=== PATIENT | female | born 1985 | race Caucasian/White ===

== ENCOUNTER 2016-09-30 14:42 | Emergency (ER) | payer BC, OTHER ==
[2016-09-30 14:48] VITALS: TEMP 98.2
--- NOTE | 2016-09-30 15:31 | ED ---
General Adult HPI - General Chief complaint: Arrhythmia/Palpitations Stated complaint: Dizzy/Palpations Time Seen by Provider: 09/30/16 14:55 Source: patient, RN notes reviewed, old records reviewed Mode of arrival: wheelchair Limitations: no limitations - History of Present Illness Initial comments: 31-year-old female presenting for dizziness and palpitations. Patient states that she is 26 weeks . She does follow with Dr. Newton, COUNSELING DIRECTOR. She states that she was sitting at work today and she felt gradual onset of some dizziness that continued to worsen as well as associated palpitations. She states this lasted for about an hour before she left work. She states she came to the ED because she couldn't get in with her regular doctor. She denies any chest pain or shortness of breath associated. She states she is still having some mild symptoms but has improved mostly at this point. She denies any abdominal pain or vaginal bleeding. She denies any complications with her thus far. She is . She denies any prior complications. She does state that she has been having some swelling in her right leg. - Related Data Home Medications Medication Instructions Recorded Confirmed Cetirizine HCl [Zyrtec] 5 mg PO DAILY PRN 09/30/16 09/30/16 Ferrous Sulfate [Feosol] 325 mg PO DAILY 09/30/16 09/30/16 Pnv with Ca,No.72/Iron/FA 1 tab PO DAILY 09/30/16 09/30/16 [ Plus Tablet] Allergies Allergy/AdvReac Type Severity Reaction Status Date / Time No Known Allergies Allergy Verified 09/30/16 15:48 Review of Systems ROS Statement: Those systems with pertinent positive or pertinent negative responses have been documented in the HPI. ROS Other: All systems not noted in ROS Statement are negative. Past Medical History Past Medical History: No Reported History History of Any Multi-Drug Resistant Organisms: None Reported Past Surgical History: Section Past Psychological History: No Psychological Hx Reported Smoking Status: Never smoker Past Alcohol Use History: None Reported Past Drug Use History: None Reported General Exam - General Exam Comments Initial Comments: General: Awake and Alert. No acute distress. Does not appear acutely ill. Eyes: JIM, EOM intact. No nystagmus. No scleral icterus. HENT: Atraumatic, normocephalic. Mucous membranes moist. Trachea midline. Neck: The neck is supple, there is no tenderness or JVD. Cardiovascular: Regular rate and rhythm. No murmur, rub, or gallop is appreciated. Distal pulses intact, 2+ radial DP bilaterally. Bilateral lower extremities with nonpitting edema. Right leg with worsening swelling compared to left. Respiratory: Lungs are clear to auscultation bilaterally. No wheezes, rales, rhonchi. No respiratory distress. Gastrointestinal: Soft, Nontender. No rebound or guarding. Non-distended. No masses or organomegaly noted. No CVA tenderness. Gravid uterus. Musculoskeletal: No tenderness. Normal ROM. No gross deformity. No strength deficits. Neurological: A&Ox3. CN II-XII grossly intact, There are no obvious motor or sensory deficits. Coordination appears grossly intact. Speech is normal. Skin: Skin is warm and dry and no rashes or lesions are noted. Psychiatric: Cooperative, appropriate mood & affect, normal judgment. Limitations: no limitations Course Vital Signs 09/30/16 09/30/16 09/30/16 14:45 15:48 15:54 Temperature 98.2 F Pulse Rate 87 77 Pulse Rate [ 91 Rd Lab Technician ] Respiratory 18 16 Rate Blood Pressure 141/67 116/58 O2 Sat by Pulse 100 100 Oximetry 09/30/16 09/30/16 17:34 18:04 Temperature Pulse Rate 88 84 Pulse Rate [ Rd Lab Technician ] Respiratory 16 14 Rate Blood Pressure 110/55 109/56 O2 Sat by Pulse 100 100 Oximetry EKG Findings - EKG Comments: EKG Findings:: 14:54. Normal sinus rhythm. Rate 79. TN 132. QRS 86. QT/QTC 364/470. Normal axis. No STEMI. Normal EKG. Medical Decision Making - Medical Decision Making 31-year-old female presenting for dizziness and palpitations. Initial vitals are stable, afebrile. Patient without any abdominal tenderness. She is not completely vaginal discharge or bleeding. IV fluids. Lab work was performed. She does have some lower extremity swelling worse on the right. Duplex was ordered to rule out DVT. Lower suspicion of PE at this time. Lab workup with stable CBC with stable anemia per patient. BMP stable. LFTs are within normal limits. Low suspicion for preeclampsia rather severe related issue. Patient was reevaluated and states she is feeling completely improved after IV fluids. Updated on results and imaging. Discussed no evidence of DVT at this time and low suspicion of PE. Discussed staying well-hydrated close follow-up with COUNSELING DIRECTOR. Discussed concerning signs and symptoms for immediate return to the ED. Patient is agreeable with plan and discharge home. heart tones were performed by the L&D nurse and stable. - Lab Data Result diagrams: 09/30/16 16:05 09/30/16 16:05 Lab Results 09/30/16 09/30/16 Range/Units 16:05 16:05 WBC 8.9 (3.8-10.6) k/uL RBC 3.99 (3.80-5.40) m/uL Hgb 10.2 L (11.4-16.0) gm/dL Hct 31.9 L (34.0-46.0) % MCV 80.1 (80.0-100.0) fL MCH 25.6 (25.0-35.0) pg MCHC 31.9 (31.0-37.0) g/dL RDW 15.5 (11.5-15.5) % Plt Count 311 (150-450) k/uL Neutrophils % 75 % Lymphocytes % 19 % Monocytes % 4 % Eosinophils % 1 % Basophils % 0 % Neutrophils # 6.7 (1.3-7.7) k/uL Lymphocytes # 1.7 (1.0-4.8) k/uL Monocytes # 0.4 (0-1.0) k/uL Eosinophils # 0.1 (0-0.7) k/uL Basophils # 0.0 (0-0.2) k/uL Hypochromasia Slight Sodium 139 (137-145) mmol/L Potassium 3.9 (3.5-5.1) mmol/L Chloride 107 (98-107) mmol/L Carbon Dioxide 22 (22-30) mmol/L Anion Gap 10 mmol/L BUN 7 (7-17) mg/dL Creatinine 0.55 (0.52-1.04) mg/dL Est GFR (MDRD) Af Amer >60 (>60 ml/min/1.73 sqM) Est GFR (MDRD) Non-Af >60 (>60 ml/min/1.73 sqM) Glucose 92 (74-99) mg/dL Calcium 9.1 (8.4-10.2) mg/dL Total Bilirubin 0.2 (0.2-1.3) mg/dL AST 17 (14-36) U/L ALT 22 (9-52) U/L Alkaline Phosphatase 108 (38-126) U/L Total Protein 7.2 (6.3-8.2) g/dL Albumin 3.7 (3.5-5.0) g/dL - EKG Data -: EKG Interpreted by In EKG shows normal: sinus rhythm Rate: normal When compared to previous EKG there are: no significant change - Radiology Data Radiology results: report reviewed Disposition Clinical Impression: Dizziness, 26 weeks gestation of , Dehydration, Anemia Disposition: HOME SELF-CARE Condition: Stable Instructions: Dizziness (ED), Palpitations (ED), Dehydration (ED) Additional Instructions: Please continue iron pills. Referrals: Stephanie Macedo MD [Primary Care Provider] - 1-2 days Fabrice Newton MD [STAFF PHYSICIAN] - 1-2 days Time of Disposition: 17:42
[2016-09-30] MEDS: SODIUM CHLORIDE 0.9% 1,000 ML IV ONE (16:04)
[2016-09-30 16:15] LABS: Basophils % (A) 0 %; CH 25.5; CHCM 32.1; Eosinophils # (A) 0.1 k/uL (0-0.7); Eosinophils % (A) 1 %; HCT 31.9 % (34.0-46.0); HDW 2.82; HGB 10.2 gm/dL (11.4-16.0); Hypochromasia Slight; Luc # (Auto) 0.09; Luc % (Auto) 1; Lymphocytes # (A) 1.7 k/uL (1.0-4.8); Lymphocytes % (A) 19 %; MCH 25.6 pg (25.0-35.0); MCHC 31.9 g/dL (31.0-37.0); MCV 80.1 fL (80.0-100.0); Mean Platelet Volume 7.9; Monocytes # (A) 0.4 k/uL (0-1.0); Monocytes % (A) 4 %; Neutrophils # (A) 6.7 k/uL (1.3-7.7); Neutrophils % (A) 75 %; RBC 3.99 m/uL (3.80-5.40); RDW 15.5 % (11.5-15.5); WBC 8.9 k/uL (3.8-10.6); WBC (Perox) 9.53
[2016-09-30 16:23] LABS: ALT 22 U/L (9-52); AST 17 U/L (14-36); Alkaline Phosphatase 108 U/L (38-126); Anion Gap 10 mmol/L; Blood Urea Nitrogen 7 mg/dL (7-17); Calcium 9.1 mg/dL (8.4-10.2); Carbon Dioxide 22 mmol/L (22-30); Chloride 107 mmol/L (98-107); Glucose 92 mg/dL (74-99); Non-African American GFR(MDRD) >60 (>60 ml/min/1.73 sqM); Potassium 3.9 mmol/L (3.5-5.1); Sodium 139 mmol/L (137-145); Total Bilirubin 0.2 mg/dL (0.2-1.3); Total Protein 7.2 g/dL (6.3-8.2)
--- NOTE | 2016-09-30 16:43 | US ---
EXAMINATION TYPE: US venous doppler duplex LE RT DATE OF EXAM: 09/30/2016 3:17 PM COMPARISON: NONE CLINICAL HISTORY: swelling r/o dvt, patient is 25weeks . SIDE PERFORMED: Right VESSELS IMAGED: External Iliac Vein (EIV) Common Femoral Vein Deep Femoral Vein Greater Saphenous Vein * Femoral Vein Popliteal Vein Small Saphenous Vein * Proximal Calf Veins (* superficial vessels) Findings: Normal compressibility and spontaneous flow. IMPRESSION: 1. No diagnostic evidence of DVT.
[2016-09-30 18:05] VITALS: BP 109/56; PULSE 84; RESP 14
== END 2016-09-30 18:30 | disposition home or self-care (01) ==
LOC: EC 14:42
DX: O26.892 Other specified pregnancy related conditions, second trimester (principal); Z3A.26 26 weeks gestation of pregnancy; R00.2 Palpitations; M79.89 Other specified soft tissue disorders; R42 Dizziness and giddiness; E86.0 Dehydration; O99.012 Anemia complicating pregnancy, second trimester
CPT/HCPCS: 36415; 80053; 85025; 93005; 96360; 96361; 99285

== ENCOUNTER 2017-01-09 09:59 | Inpatient (IN) | payer BC, OTHER ==
[2017-01-06 10:37] VITALS: BMI 44.4
[2017-01-09] MEDS ORDERED: CITRIC ACID-SODIUM CITRATE 15 ML CUP PO ONE (10:30)
[2017-01-09] MEDS ORDERED: ceFAZolin 2 GM in SODIUM CHLORIDE 0.9% 100 ML IVPB ONE (10:30)
[2017-01-09] MEDS ORDERED: LACTATED RINGERS 1,000 ML IV ONE (10:30)
[2017-01-09 11:02] LABS: Anisocytosis Slight; Basophils % (A) 0 %; CH 24.9; CHCM 30.8; Eosinophils # (A) 0.1 k/uL (0-0.7); Eosinophils % (A) 1 %; HCT 35.7 % (34.0-46.0); HDW 2.84; HGB 10.9 gm/dL (11.4-16.0); Hypochromasia Moderate; Luc # (Auto) 0.16; Luc % (Auto) 2; Lymphocytes # (A) 1.5 k/uL (1.0-4.8); Lymphocytes % (A) 14 %; MCH 24.9 pg (25.0-35.0); MCHC 30.7 g/dL (31.0-37.0); MCV 81.3 fL (80.0-100.0); Mean Platelet Volume 7.3; Monocytes # (A) 0.3 k/uL (0-1.0); Monocytes % (A) 3 %; Neutrophils # (A) 8.8 k/uL (1.3-7.7); Neutrophils % (A) 81 %; RBC 4.39 m/uL (3.80-5.40); WBC 10.9 k/uL (3.8-10.6); WBC (Perox) 10.76
--- NOTE | 2017-01-09 11:51 | P.HPOB ---
History of Present Illness H&P Date: 01/09/17 Chief Complaint: 39+ weeks, previous section x2 The patient is a 31-year-old 3 para 2001 admitted at 39+ weeks as established by a 6 week ultrasound. She is admitted for repeat low transverse section having undergone 2 previous sections. Her has been uncomplicated and group B strep status is negative. On labor and delivery, all signs reassuring. Obstetrical history: 3 para 2001 with 2 term sections without complications. Current statistics are listed in history present illness. EDC of 01/14/2017 was established by a 6 week ultrasound. Laboratory workup demonstrates a blood type of O+ with a negative antibody screen. Rubella status is immune. All other laboratory workup was within normal limits. Early Glucola and second trimester Glucola were within normal limits. Group B strep status is negative. Gynecologic history is unremarkable with no history of any infections to include STDs. Review of Systems Review of systems is confined to history of present illness. Past Medical History Past Medical History: No Reported History History of Any Multi-Drug Resistant Organisms: None Reported Past Surgical History: Section Past Anesthesia/Blood Transfusion Reactions: Previous Problems w/ Anesthesia, Family History of Problems w/ Anesthesia, Postoperative Nausea & Vomiting (PONV) Additional Past Anesthesia/Blood Transfusion Reaction / Comment(s): n/v after spinal inserted and continued post op. mother hx ponv Past Psychological History: No Psychological Hx Reported Smoking Status: Never smoker Past Alcohol Use History: None Reported Past Drug Use History: None Reported - Past Family History Mother Family Medical History: Cancer Additional Family Medical History / Comment(s): colon cancer Father Family Medical History: Diabetes Mellitus Medications and Allergies Home Medications Medication Instructions Recorded Confirmed Type Cetirizine HCl [Zyrtec] 5 mg PO DAILY PRN 09/30/16 01/09/17 History Ferrous Sulfate [Feosol] 325 mg PO DAILY 09/30/16 01/09/17 History Pnv with Ca,No.72/Iron/FA 1 tab PO DAILY 09/30/16 01/09/17 History [ Plus Tablet] Allergies Allergy/AdvReac Type Severity Reaction Status Date / Time sulfamethoxazole Allergy Rash/Hives Verified 01/09/17 10:25 [From Bactrim] trimethoprim [From Bactrim] Allergy Rash/Hives Verified 01/09/17 10:25 Exam - Vital Signs Vital signs: Vital Signs Temp Pulse Resp BP Pulse Ox 01/09/17 10:24 95.8 F L 88 18 125/73 98 Intake and Output 01/08/17 01/09/17 01/09/17 22:59 06:59 14:59 Other: Weight 113.852 kg Patient Weight 01/10/17 06:59 Weight 113.852 kg In general, this is a well-developed, moderately obese white female in no acute distress. Her heart has a regular rhythm and rate without murmur. Her lungs are clear to auscultation bilaterally in all iraheta. Her abdomen is moderately obese, nondistended, has normal active bowel sounds, is soft, nontender, and without any palpable masses aside from uterine fundus. Her extremities are without any cyanosis, clubbing, or significant edema and are nontender to palpation bilaterally. Digital cervical examination is deferred at this time. Results Result Diagrams: 01/09/17 10:46 Abnormal Lab Results - Last 24 Hours (Table) 01/09/17 Range/Units 10:46 WBC 10.9 H (3.8-10.6) k/uL Hgb 10.9 L (11.4-16.0) gm/dL MCH 24.9 L (25.0-35.0) pg MCHC 30.7 L (31.0-37.0) g/dL RDW 16.0 H (11.5-15.5) % Neutrophils # 8.8 H (1.3-7.7) k/uL Assessment and Plan (1) Previous section Status: Acute (2) Term Status: Acute Plan: The patient is admitted for repeat low transverse section. The risks and complications the procedure been thoroughly discussed and she has understood and agreed to proceed.
[2017-01-09] MEDS: LACTATED RINGERS 1,000 ML IV SCH ×2 (11:55→15:29)
[2017-01-09] MEDS ORDERED: OXYTOCIN 10 UNIT/ML 1 ML VIAL ONE (12:05)
[2017-01-09] MEDS ORDERED: PHENYLEPHRINE-0.9% NACL SYG 1 MG/10 ML SYRINGE ONE (12:05)
[2017-01-09] MEDS ORDERED: ONDANSETRON 4 MG/2 ML VIAL ONE (12:05)
[2017-01-09] MEDS ORDERED: MORPHINE SULFATE (PF) 0.3 MG/0.3 ML SYR ONE (12:05)
[2017-01-09] MEDS ORDERED: ePHEDrine 50 MG/ML 1 ML AMP ONE (12:05)
[2017-01-09] MEDS ORDERED: KETOROLAC 30 MG/ML 1 ML VIAL ONE (12:05)
[2017-01-09] MEDS ORDERED: NALBUPHINE 10 MG/ML AMPUL ONE (12:05)
[2017-01-09] MEDS ORDERED: NALOXONE 0.4 MG/ML 1 ML VIAL IV PRN ×2 (12:53→22:39)
[2017-01-09] MEDS ORDERED: diphenhydrAMINE 50 MG/ML 1 ML VIAL IVP PRN ×3 (12:53→22:39)
[2017-01-09] MEDS ORDERED: ZOLPIDEM 5 MG TAB PO PRN (12:53)
[2017-01-09] MEDS ORDERED: diphenhydrAMINE 25 MG CAP PO PRN (12:53)
[2017-01-09] MEDS ORDERED: LANOLIN CREAM 5 GM TUBE TOPICAL PRN (12:53)
[2017-01-09] MEDS ORDERED: Acetaminophen-Codeine 300-30mg TAB PO PRN (12:53)
[2017-01-09] MEDS ORDERED: SIMETHICONE 80 MG CHEWABLE PO PRN (12:53)
[2017-01-09] MEDS ORDERED: ONDANSETRON 4 MG/2 ML VIAL IVP PRN ×2 (12:53→22:39)
[2017-01-09] MEDS ORDERED: ACETAMINOPHEN TAB 325 MG TAB PO PRN (12:53)
[2017-01-09] MEDS ORDERED: diphenhydrAMINE 50 MG CAP PO PRN (12:53)
[2017-01-09] MEDS ORDERED: METOCLOPRAMIDE 5 MG/ML 2 ML VIAL IVP PRN (12:53)
[2017-01-09] MEDS ORDERED: LACTATED RINGERS 1,000 ML IV SCH (13:00)
[2017-01-09] MEDS ORDERED: OXYTOCIN 20 UNITS/1000 ML NS 1,000 ML IV SCH (13:00)
--- NOTE | 2017-01-09 13:01 | P.OP ---
Date of Procedure: 01/09/17 Preoperative Diagnosis: #1. 39+ weeks intrauterine #2. Previous section x2 Postoperative Diagnosis: Same Procedure(s) Performed: #1. Repeat low transverse section Anesthesia: spinal Surgeon: Fabrice Newton Noc Analyst #1: Katelyn Bacon Estimated Blood Loss (ml): 400 IV fluids (ml): 600 Urine output (ml): 200 Pathology: other (Placenta) Condition: stable Disposition: floor Operative Findings: The patient was taken to the operating room where she was delivered of a viable 7 lbs. 5 oz. baby boy with Apgars of 8 at 1 minute and 9 at 5 minutes delivered in the right occiput transverse position. The placenta was delivered manually, intact, and grossly normal with a grossly normal three-vessel cord. The uterus , tubes, and ovaries were entirely normal aside from one 1-2 cm fibroid on the left posterior fundus of the uterus. Description of Procedure: The patient was prepped and draped in usual fashion after spinal anesthesia was administered by the anesthesiologist. A Pfannenstiel incision was made through pre-existing scar and extended into the abdominal cavity without difficulty. There was a moderate amount of scarring at the level of the fascia and rectus muscles. The bladder was distal to the site of intended incision on the uterus. An Hero self-retaining retractor was placed for visualization. A 2 cm incision was made in the transverse plane of the lower uterine segment to enter the uterus at which time clear fluid was noted. The incision was extended in both directions using the bandage scissors. The infant was delivered to the shoulders at which time the nose and mouth were thoroughly suctioned. Remainder of the was delivered onto the field where the cord was doubly clamped, cut, and the passed for resuscitative measures with weight and Apgars as noted above. A segment of cord was doubly clamped, cut, and set aside should cord gases become necessary. The placenta was delivered manually and intact as noted above. The uterus was swept of any remaining placental or membranous fragments. It was then exteriorized and the margins of the incision grasped with Merlos clamps. The incision was closed with a single running locking stitch of 0 chromic catgut proceeding from margin to margin. Hemostasis appeared to be excellent. The posterior cul-de-sac was suctioned using a guard and the uterine and ovarian findings are as noted above. Uterus was replaced within the abdominal cavity and the gutters swept of any remaining blood, fluid, or clot. The incision was reexamined and noted to be hemostatic. The Hero retractor was removed and the layer of muscles examined and made hemostatic with the Bovie. The parietal peritoneum was loosely reapproximated. The fascia was closed with 2 running stitches of 0 Vicryl proceeding from the lateral margins to the midpoint. The subcutaneous tissues were irrigated, made hemostatic with the Bovie, and reapproximated with a running stitch of 30 plain catgut. The skin was reapproximated with a running subcuticular stitch of 4-0 Vicryl followed by half-inch Steri-Strips placed with Mastisol. Estimated blood loss for the case was approximate 400 mL. There were no complications. All sponge, instrument, and needle counts were correct. The patient tolerated the procedure well and proceeded to the recovery room in stable condition. Both mother and infant are resting comfortably in recovery.
[2017-01-09] MEDS: KETOROLAC 30 MG/ML 1 ML VIAL IVP PRN (19:19)
[2017-01-09] MEDS: SENNOSIDES-DOCUSATE SODIUM 1 EACH TAB PO SCH (19:49)
[2017-01-09] MEDS ORDERED: MORPHINE SULFATE 4 MG/ML SYRINGE IVP PRN (22:39)
[2017-01-10] MEDS: KETOROLAC 30 MG/ML 1 ML VIAL IVP PRN ×2 (03:31→10:16)
--- NOTE | 2017-01-10 06:33 | P.PNOBGPC ---
Subjective - Subjective Interval history: Patient reports some nausea yesterday, now resolved. Patient reports: Reports appetite normal, Reports voiding normally, Reports pain well controlled, Reports ambulating normally : doing well Objective - Vital Signs Latest vital signs: Vital Signs Temp Pulse Resp BP Pulse Ox 01/10/17 03:00 70 98 01/09/17 23:56 99 01/09/17 23:55 98.4 F 88 16 118/74 99 01/09/17 22:39 98 01/09/17 20:00 97.8 F 91 18 111/57 97 01/09/17 15:46 98.1 F 80 16 118/66 99 01/09/17 14:55 98.0 F 80 16 119/70 99 01/09/17 14:25 75 16 120/69 98 01/09/17 13:55 98.0 F 60 16 124/74 98 01/09/17 13:40 90 16 130/74 98 01/09/17 13:25 90 16 123/59 97 01/09/17 13:10 83 18 114/61 01/09/17 12:55 96.6 F L 79 16 128/60 97 01/09/17 10:24 95.8 F L 88 18 125/73 98 Intake and Output 01/09/17 01/09/17 01/10/17 14:59 22:59 06:59 Output Total 175 300 300 Balance -175 -300 -300 Output: Urine 175 300 300 Uretheral (Bennett) 250 Other: Voiding Method Indwelling Catheter # Voids 0 Weight 113.852 kg Patient Weight 01/10/17 06:59 Weight 113.852 kg - Exam Lungs: bilateral: normal Chest: Normal S1, Normal S2 Extremities: Present: normal Abdomen: Present: normal appearance, soft. Absent: distention, tenderness Incision: Present: normal, dry, intact Uterus: Present: normal, firm (The uterine fundus as tonic and nontender around the umbilicus.) - Labs Labs: Abnormal Lab Results - Last 24 Hours (Table) 01/09/17 Range/Units 10:46 WBC 10.9 H (3.8-10.6) k/uL Hgb 10.9 L (11.4-16.0) gm/dL MCH 24.9 L (25.0-35.0) pg MCHC 30.7 L (31.0-37.0) g/dL RDW 16.0 H (11.5-15.5) % Neutrophils # 8.8 H (1.3-7.7) k/uL Assessment and Plan (1) Previous section Current Visit: Yes Status: Acute Code(s): Z98.891 - HISTORY OF UTERINE SCAR FROM PREVIOUS SURGERY SNOMED Code(s): 945836985 (2) Term Current Visit: Yes Status: Acute Code(s): Z34.80 - ENCOUNTER FOR SUPRVSN OF NORMAL , UNSP TRIMESTER SNOMED Code(s): 39485735 (3) S/P section Narrative/Plan: Continue routine postoperative care. I have encouraged her to ambulate in the hallways at least 4 times daily. I have also encouraged her to be less aggressive with attempting solid foods this morning though she certainly can continue a regular diet. I would anticipate possible discharge home tomorrow pending no complications or concerns. Current Visit: Yes Status: Acute Code(s): Z98.891 - HISTORY OF UTERINE SCAR FROM PREVIOUS SURGERY SNOMED Code(s): 396114452
[2017-01-10] MEDS: SENNOSIDES-DOCUSATE SODIUM 1 EACH TAB PO SCH ×2 (08:10→19:41)
--- NOTE | 2017-01-10 09:11 | P.PN ---
Progress Note - Text Date: 01/10/2017 Time: 700 The patient is status post section Vital signs stable VAS:0-10 Patient has no complaints of pain. The patient incurred some minimal itching yesterday, this itching is now subsiding. Pain meds to be managed by service.
[2017-01-10 09:27] LABS: Anisocytosis Slight; Basophils % (A) 0 %; CH 25.1; CHCM 30.5; Eosinophils % (A) 0 %; HCT 29.8 % (34.0-46.0); HDW 2.77; Hypochromasia Moderate; Luc # (Auto) 0.13; Luc % (Auto) 1; Lymphocytes # (A) 1.3 k/uL (1.0-4.8); Lymphocytes % (A) 14 %; MCH 24.8 pg (25.0-35.0); MCV 82.8 fL (80.0-100.0); Mean Platelet Volume 7.8; Monocytes # (A) 0.4 k/uL (0-1.0); Monocytes % (A) 4 %; Neutrophils # (A) 7.3 k/uL (1.3-7.7); Neutrophils % (A) 80 %; RDW 16.2 % (11.5-15.5); WBC 9.1 k/uL (3.8-10.6); WBC (Perox) 9.77
[2017-01-10 09:29] LABS: HGB 8.9 gm/dL (11.4-16.0)
[2017-01-10] MEDS: IBUPROFEN 600 MG TAB PO PRN (15:47)
[2017-01-10] MEDS: Acetaminophen-Codeine 300-30mg TAB PO PRN (19:40)
[2017-01-11] MEDS: IBUPROFEN 600 MG TAB PO PRN (00:38)
[2017-01-11] MEDS: Acetaminophen-Codeine 300-30mg TAB PO PRN ×2 (04:22→09:13)
--- NOTE | 2017-01-11 08:31 | P.DS ---
Providers Date of admission: 01/09/17 09:59 Expected date of discharge: 01/11/17 Attending physician: Fabrice Newton Primary care physician: Stated None - Discharge Diagnosis(es) (1) Previous section Current Visit: Yes Status: Acute (2) Term Current Visit: Yes Status: Acute (3) S/P section Current Visit: Yes Status: Acute Hospital Course: History is a 31-year-old 3 para 2001 admitted at 39+ weeks by good dating parameters. She is a history of 2 previous sections and requested a repeat again. She was taken the operating room where she was delivered of a viable 7 lbs. 5 oz. baby boy with Apgars of 8 at 1 minute and 9 at 5 minutes. Her postoperative course was unremarkable with vital signs or any stable and her temperature was afebrile throughout. She was deemed stable for discharge by postoperative day #2 was discharged home to follow-up in the office in 2 weeks for an incision check and 6 weeks' time routinely. Discharge instructions included calling for any significantly increased bleeding or foul- smelling lochia, significantly increased fever or abdominal pain, perineal complaints, breast complaints, incisional complaints, or anything else that concerned her. She is additionally instructed to have nothing in the vagina for at least 6 weeks time to include intercourse. She understood her instructions and agrees to follow up as noted above. Discharge medications included continued vitamins as she has opted to breast-feed. She is additionally provided with a prescription for Tylenol 3, 1-2 by mouth every 6 hours when necessary pain, #30 dispensed with no refills. Maternal blood type is O+ and rubella status is immune. Discharge hemoglobin and hematocrit were 8.9 and 29.8. As result, she was asked to use iron sulfate daily for approximately 1 month. Procedures: #1. Repeat low transverse section Patient Condition at Discharge: Stable Plan - Discharge Summary New Discharge Prescriptions: Acetaminophen-Codeine 300-30mg [Tylenol #3] 2 tab PO Q6H PRN #30 tablet PRN Reason: Pain Discharge Medication List Cetirizine HCl [Zyrtec] 5 mg PO DAILY PRN 09/30/16 [History] Ferrous Sulfate [Feosol] 325 mg PO DAILY 09/30/16 [History] Pnv with Ca,No.72/Iron/FA [ Plus Tablet] 1 tab PO DAILY 09/30/16 [ History] Acetaminophen-Codeine 300-30mg [Tylenol #3] 2 tab PO Q6H PRN #30 tablet [Rx] Follow up Appointment(s)/Referral(s): Fabrice Newton MD [STAFF PHYSICIAN] - 2 Weeks
[2017-01-11] MEDS: SENNOSIDES-DOCUSATE SODIUM 1 EACH TAB PO SCH (09:13)
[2017-01-11 12:39] VITALS: RESP 20
[2017-01-11 12:40] VITALS: BP 137/82; PULSE 88; TEMP 98.5
== END 2017-01-11 12:45 | disposition home or self-care (01) | DRG 766 ==
LOC: 4FBP 09:59
PROVIDERS: ADMIT Obstetrics & Gynecology; ATTEND Obstetrics & Gynecology
PROC: 10D00Z1 Extraction of Products of Conception, Low, Open Approach (ICD-10-PCS; principal; 2017-01-09 12:16)
DX: O34.211 Maternal care for low transverse scar from previous cesarean delivery (principal); N85.8 Other specified noninflammatory disorders of uterus; Z37.0 Single live birth; Z3A.39 39 weeks gestation of pregnancy; Z79.899 Other long term (current) drug therapy
CPT/HCPCS: 85025; 86850; 86900; 86901; 88307

== ENCOUNTER → 2019-04-29 | Outpatient (CLI) | payer BC ==
--- NOTE | 2019-04-29 09:03 | MR ---
EXAMINATION TYPE: MR lumbar spine wo con DATE OF EXAM: 04/29/2019 COMPARISON: NONE HISTORY: Low back pain per order. Pain for 15 years into both thighs and buttocks per patient. TECHNIQUE: Multiplanar, multisequence imaging of the lumbar spine is performed without IV contrast. FINDINGS: Sagittal images of the lumbar spine show vertebral body heights and alignment to appear sat isfactory. There is disc desiccation with mild disc space narrowing L4-L5 level otherwise the interve rtebral discs demonstrate normal heights and hydration. The conus medullaris is normal in position a nd signal ending mid L1 level. There is however focus of T2 hyperintensity central spinal cord mid T1 1 level sagittal image 7. There is some diminished AP diameter of cord at this level relative to T12 level. The bone marrow signal intensity is within normal limits. Mild multilevel anterior spurring. Axial images show the T12-L1, L1-L2, L2-L3, and L3-L4 levels all to appear within normal limits. Axial images at the L4-L5 level mild facet degenerative changes bilaterally. There is broad-based rig ht paracentral disc protrusion effacing the anterolateral thecal sac and encroaching very narrow cent ral right L5 nerve sagittal image 7 and axial image 7. There is mild right-sided anterior inferior ne ural foraminal narrowing encroaching the exiting right L4 nerve axial image 7 and sagittal image 10. Left-sided neural foramen is patent. Axial images at the L5-S1 level show mild facet degenerative changes bilaterally. Spinal canal is pre served. Bilateral neural foramina are patent. No suspicious incidental retroperitoneal findings. IMPRESSION: 1. Prominent focal disc herniation L4-L5 level effaces anterolateral thecal sac and encroaches near t he exiting right L4 and central right L5 nerve. Correlate clinically. 2. Cannot exclude abnormal cord signal and atrophy mid T11 level. Advise further investigation with c ontrast-enhanced thoracic spine MRI to better evaluate and characterize.
== END | disposition home or self-care (01) ==
LOC: RADMRIMAIN 06:48
PROVIDERS: ATTEND Orthopaedic Surgery
DX: M51.26 Other intervertebral disc displacement, lumbar region (principal)
CPT/HCPCS: 72148